=== PATIENT | female | born 1935 | race Caucasian/White ===

== ENCOUNTER 2020-11-11 06:33 | Day surgery (SDC) | payer OTHER, BC ==
[2020-11-09 11:26] VITALS: BMI 25.2
[2020-11-11] MEDS: TROPICAMIDE 1% OPHTH SOLN 15 ML BOTTLE ONE ×3 (07:10→07:20)
[2020-11-11] MEDS: CIPROFLOXACIN 0.3% EYE DROPS 5 ML BOTTLE ONE ×3 (07:10→07:20)
[2020-11-11] MEDS: CYCLOPENTOLATE 2% OPHTH SOLN 2 ML BOTTLE ONE ×3 (07:10→07:20)
[2020-11-11] MEDS: PHENYLEPHRINE 2.5% OPHTH SOLN 15 ML BOTTLE ONE ×3 (07:10→07:20)
[2020-11-11] MEDS ORDERED: LIDOCAINE 1% P/F 10 MG/ML VIAL ONE (07:17)
[2020-11-11] MEDS ORDERED: EPINEPHrine/PF 1 MG/1 ML (1:1,000) AMPULE ONE (07:17)
[2020-11-11] MEDS ORDERED: TETRACAINE 0.5% OPHTH SOLN 2 ML BOTTLE ONE (07:18)
[2020-11-11] MEDS ORDERED: CARBACHOL 0.01% INTRA-OCULAR 1.5 ML VIAL ONE (07:18)
[2020-11-11] MEDS ORDERED: NEO/POLYMYX B SULF/DEXAMETH OPHTHALMIC 5ML BOTTLE ONE (07:18)
[2020-11-11] MEDS ORDERED: BSS (NA/CA/MG/K) BALANCED SALT SOLUTION OPHTH SOLN 15 ML BOTTLE ONE (07:18)
[2020-11-11] MEDS ORDERED: MIDAZOLAM HCL 2 MG/2 ML SINGLE DOSE VIAL ONE (07:47)
[2020-11-11] MEDS ORDERED: PROPOFOL 20 ML ONE (08:13)
[2020-11-11] MEDS ORDERED: LIDOCAINE HCL/PF 2% SDV 5ML VIAL ONE (08:13)
[2020-11-11 12:47] VITALS: TEMP 97.5
[2020-11-11 12:49] VITALS: BP 134/64; PULSE 62
== END 2020-11-11 09:45 | disposition home or self-care (01) ==
LOC: FASU 06:33
PROVIDERS: ATTEND Ophthalmology
PROC: 08RJ3JZ Replacement of Right Lens with Synthetic Substitute, Percutaneous Approach (ICD-10-PCS; principal; 2020-11-11 08:18)
DX: H26.8 Other specified cataract (principal)

== ENCOUNTER 2020-12-09 06:56 | Day surgery (SDC) | payer OTHER, BC ==
[2020-12-03 12:10] VITALS: BMI 25.4
[2020-12-09] MEDS: TROPICAMIDE 1% OPHTH SOLN 15 ML BOTTLE ONE ×3 (07:45→07:55)
[2020-12-09] MEDS: CIPROFLOXACIN 0.3% EYE DROPS 5 ML BOTTLE ONE ×3 (07:45→07:55)
[2020-12-09] MEDS: PHENYLEPHRINE 2.5% OPHTH SOLN 15 ML BOTTLE ONE ×3 (07:45→07:55)
[2020-12-09] MEDS: CYCLOPENTOLATE 2% OPHTH SOLN 2 ML BOTTLE ONE ×3 (07:45→07:55)
[2020-12-09 07:51] VITALS: TEMP 98.5
[2020-12-09] MEDS ORDERED: MIDAZOLAM HCL 2 MG/2 ML SINGLE DOSE VIAL ONE (08:31)
[2020-12-09] MEDS ORDERED: LIDOCAINE 1% P/F 10 MG/ML VIAL ONE (08:36)
[2020-12-09] MEDS ORDERED: TETRACAINE 0.5% OPHTH SOLN 2 ML BOTTLE ONE (08:36)
[2020-12-09] MEDS ORDERED: BSS (NA/CA/MG/K) BALANCED SALT SOLUTION OPHTH SOLN 15 ML BOTTLE ONE (08:37)
[2020-12-09] MEDS ORDERED: CARBACHOL 0.01% INTRA-OCULAR 1.5 ML VIAL ONE (08:37)
[2020-12-09] MEDS ORDERED: NEO/POLYMYX B SULF/DEXAMETH OPHTHALMIC 5ML BOTTLE ONE (08:37)
[2020-12-09 10:03] VITALS: BP 135/65; PULSE 61
== END 2020-12-09 10:00 | disposition home or self-care (01) ==
LOC: FASU 06:56
PROVIDERS: ATTEND Ophthalmology
PROC: 08RK3JZ Replacement of Left Lens with Synthetic Substitute, Percutaneous Approach (ICD-10-PCS; principal; 2020-12-09 08:54)
DX: H26.8 Other specified cataract (principal)